=== PATIENT | female | born 1945 | race Caucasian/White ===

== ENCOUNTER 2020-03-01 13:59 | Emergency (ER) | payer MEDICARE ==
[~2020-03-01] VITALS: Ht 147.3 cm; Wt 63.0 kg
[~2020-03-01 13:59] MED LIST: ACET325T26 PO; ASPI-496 PO; DULO30CA2 PO; OXYC5TAB3 PO
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
[2020-03-01] MEDS ORDERED: ACETAMINOPHEN 500 MG TABLET PO ONE (14:30)
[2020-03-01] MEDS ORDERED: METHOCARBAMOL 750 MG TABLET PO ONE (14:30)
[2020-03-01] MEDS ORDERED: METHOCARBAMOL 750 MG TABLET ONE (14:32)
[2020-03-01] MEDS ORDERED: ACETAMINOPHEN 500 MG TABLET ONE (14:33)
--- NOTE | 2020-03-01 14:55 | NUR ---
Pt returned from [facility]. Came into Pt's room to give Tylenol and Robaxin. Pt refused tylenol because she states it gives her "cramps". Pt took Robaxin.
[2020-03-01] MEDS ORDERED: OXYcodone IR 5MG TABLET ONE (16:22)
--- NOTE | 2020-03-01 16:51 | NUR ---
DISCHARGE INSTRUCTIONS GIVEN TO PATIENT. INITIALLY PATIENT REFUSING TO LEAVE. DR. DUVALL INFORMED, ORDER TO GIVE OXYCODONE 5 AND SEND HER OUT. RN INFORMED PATIENT THAT ALL TEST WE NEGATIVE, AND THERE IS NO REASON TO KEEP HER IN THE HOSPITAL OVERNIGHT. PT REFUSED THE PAIN MEDICATION, AND THREW IT ON THE FLOOR. RN WILL WASTE MEDICATION AFTER PILL IS FOUND. PT AMBULATES OUT OF ED WITH STRONG STEADY GAIT.
[2020-03-01] MEDS ORDERED: OXYcodone IR 5MG TABLET PO ONE (17:00)
== END 2020-03-01 16:51 | disposition home or self-care (01) ==
LOC: ED 14:41
DX: M25.552 Pain in left hip (principal); I10 Essential (primary) hypertension
CPT/HCPCS: 99283

== ENCOUNTER 2020-04-14 21:50 | Emergency (ER) | payer MEDICARE, MEDICAID ==
[~2020-04-14] VITALS: Ht 147.3 cm; Wt 60.0 kg
[~2020-04-14 21:50] MED LIST changes: +ACET500C3 PO; +ASCO500T9 PO; +CEFD300C37 PO; +IBUP-1222 PO; +POLY17PO5 PO
[2020-04-14 22:28] LABS: MEAN CORPUSCULAR HEMOGLOBIN 22.8 pg (27.0-34.8); MEAN CORPUSCULAR HGB CONC 31.1 g/dL (32.4-35.8); MEAN CORPUSCULAR VOLUME 73.1 fL (80-100); MEAN PLATELET VOLUME 7.6 fL (7.4-10.4); PLATELET COUNT 673 x10^3/uL (130-400); RED BLOOD COUNT 3.26 x10^6/uL (3.82-5.3); RED CELL DISTRIBUTION WIDTH 16.3 % (9.6-15.2)
[2020-04-14 22:35] LABS: ALANINE AMINOTRANSFERASE 16 U/L (12-78); ANION GAP 5 mmol/L (5-15); CALCIUM 8.3 mg/dL (8.5-10.1); CHLORIDE 107 mmol/L (98-107); CREATININE 0.74 mg/dL (0.55-1.02)
[2020-04-14 22:39] LABS: ALKALINE PHOSPHATASE 158 U/L (45-117); BILIRUBIN,TOTAL 0.2 mg/dL (0.2-1.0); TOTAL PROTEIN 7.4 g/dL (6.4-8.2); TROPONIN I < 0.015 ng/mL (0.000-0.045)
[2020-04-14 23:05] LABS: MD YES
[2020-04-14 23:08] LABS: BASOS#(MANUAL) 0.11 x10^3/uL (0-0.1); BASOS% (MANUAL) 1 % (0-1); LYMPH#(MANUAL) 2.15 x10^3/uL (1-3.4); LYMPHS% (MANUAL) 19 % (22-44); MONOS#(MANUAL) 1.02 x10^3/uL (0.3-2.7); MONOS% (MANUAL) 9 % (2-9); SEG#(MANUAL) 8.02 x10^3/uL (1.8-6.8); SEGS% (MANUAL) 71 % (42-75)
[2020-04-14 23:09] LABS: ANISOCYTOSIS 1+; HYPOCHROMIA 1+; POLYCHROMASIA 1+
[2020-04-14 23:10] LABS: <PLATELET ESTIMATE> INCREASED; OVALOCYTES 1+
[2020-04-14 23:11] LABS: <PLT MORPHOLOGY> NORMAL PLT MORPH
[2020-04-15] MEDS ORDERED: ONDANSETRON 2MG/ML, 2ML IVPush ONE
[2020-04-15] MEDS ORDERED: MORPHINE SULFATE 4 MG/ML, 1ML IVPush PRN
[2020-04-15] MEDS ORDERED: MORPHINE SULFATE 4 MG/ML, 1ML ONE (00:25)
[2020-04-15] MEDS ORDERED: ONDANSETRON 2MG/ML, 2ML ONE (00:26)
--- NOTE | 2020-04-15 01:00 | NUR ---
Report received from KE Zamora. This RN to assume care. Awaiting CTA results.
[2020-04-15 02:58] VITALS: BP 127/72
[2020-04-15 03:08] LABS: AMPHETAMINE SCREEN, URINE Negative (Negative); BARBITURATE SCREEN, URINE Negative (Negative); BENZODIAZEPINE SCREEN, URINE Negative (Negative); CANNABINOID SCREEN, URINE Negative (Negative); COCAINE SCREEN, URINE Negative (Negative); METHADONE SCREEN, URINE Negative (Negative); OPIATE SCREEN, URINE Negative (Negative)
[2020-04-15 03:13] LABS: MICROSCOPIC INDICATED
== END 2020-04-15 03:00 | disposition home or self-care (01) ==
LOC: ED 23:15 → UNDOADMIN 04-15 01:37 → EDIP 04-15 01:37 → ED 04-15 03:00
DX: R07.89 Other chest pain (principal); R05 Cough; D50.9 Iron deficiency anemia, unspecified; R50.9 Fever, unspecified; R06.02 Shortness of breath; I10 Essential (primary) hypertension; Z87.891 Personal history of nicotine dependence
CPT/HCPCS: 36415; 71045; 71275; 80053; 80307; 81001; 83880; 84484; 85025; 87086; 93005; 96374; 96375; 99285; J2270; J2405

== ENCOUNTER 2020-04-16 17:51 | Emergency (ER) | payer MEDICARE, MEDICAID ==
[~2020-04-16] VITALS: Ht 147.3 cm; Wt 62.0 kg
--- NOTE | 2020-04-16 17:53 | NUR ---
PATIENT ARRIVES WITH RAFASA FROM HOME WITH COMPLAINTS OF LEFT BACK PAIN THAT BEGAN LAST NIGHT. LEFT LEG PAIN WELL. AND A COUGH AND CONGESTION AND COLD/FLU LIKE SYMPTOMS FOR SEVERAL DAYS.
--- NOTE | 2020-04-16 18:12 | NUR ---
patient got up with walker to go to the bathroom, she is good on feet with walker. she states history of bipolar and depression but takes no medications.
--- NOTE | 2020-04-16 18:39 | NUR ---
left for xray
[2020-04-16 18:44] VITALS: BP 127/68
[2020-04-16 18:53] LABS: MEAN CORPUSCULAR HEMOGLOBIN 22.9 pg (27.0-34.8); MEAN CORPUSCULAR HGB CONC 31.2 g/dL (32.4-35.8); MEAN CORPUSCULAR VOLUME 73.3 fL (80-100); MEAN PLATELET VOLUME 7.9 fL (7.4-10.4); PLATELET COUNT 657 x10^3/uL (130-400); RED BLOOD COUNT 3.19 x10^6/uL (3.82-5.3); RED CELL DISTRIBUTION WIDTH 16.9 % (9.6-15.2)
[2020-04-16 18:54] LABS: MICROSCOPIC INDICATED
[2020-04-16 19:06] LABS: ANION GAP 7 mmol/L (5-15); CALCIUM 8.8 mg/dL (8.5-10.1); CHLORIDE 108 mmol/L (98-107); CREATININE 0.71 mg/dL (0.55-1.02)
[2020-04-16 19:24] LABS: MD YES
[2020-04-16 19:28] LABS: BANDS%(MANUAL) 1 % (0-7); EOS% (MANUAL) 1 % (1-7); LYMPH#(MANUAL) 2.57 x10^3/uL (1-3.4); LYMPHS% (MANUAL) 26 % (22-44); MONOS% (MANUAL) 5 % (2-9); SEG#(MANUAL) 6.63 x10^3/uL (1.8-6.8); SEGS% (MANUAL) 67 % (42-75)
[2020-04-16 19:29] LABS: ANISOCYTOSIS 2+
[2020-04-16 19:30] LABS: HYPOCHROMIA 1+; MICROCYTOSIS 2+
[2020-04-16 19:31] LABS: OVALOCYTES 1+; POLYCHROMASIA 1+; TEAR DROPS 1+
[2020-04-16 19:32] LABS: <PLATELET ESTIMATE> INCREASED; <PLT MORPHOLOGY> NORMAL PLT MORPH
--- NOTE | 2020-04-16 20:06 | NUR ---
patient has gotten up with walker and assistance getting in and out of bed to bathroom x 8 during her stay, states has prolapsed bladder hence urgency. she gets up and walks to nurses station wanting help, and walked into another patients room where i was to ask for help. Patient hits call light aover 15 times during her stay, asking for help getting up and down, help with tv, blankets, help with getting positioned. helping her as much as i'm able. patient has multiple complaints, trying to help patient get around.
--- NOTE | 2020-04-16 20:27 | NUR ---
got patient cab voucher home. discharge reviewed.
[2020-04-16] MEDS ORDERED: NALOXONE 1 MG/ML, 2ML ONE (20:59)
== END 2020-04-16 20:28 ==
LOC: ED 19:22
DX: M54.6 Pain in thoracic spine (principal); M54.5 Low back pain; B34.9 Viral infection, unspecified; R06.02 Shortness of breath; I10 Essential (primary) hypertension
CPT/HCPCS: 36415; 71045; 72110; 80048; 81001; 82040; 85025; 87086; 99284

== ENCOUNTER 2020-04-30 03:34 | Emergency (ER) | payer MEDICARE, MEDICAID ==
[~2020-04-30] VITALS: Ht 147.3 cm; Wt 62.0 kg
--- NOTE | 2020-04-30 04:10 | NUR ---
REFORTS GLF LAST NIGHT, PT REPORTS SHE FELL ON RIGHT SIDE HOWEVER PAIN IS ON LEFT HIP AND KNEE.
--- NOTE | 2020-04-30 04:57 | NUR ---
ASSISTED PT TO [facility].
[2020-04-30] MEDS ORDERED: KETOROLAC 30 MG/1 ML ONE (05:46)
[2020-04-30 05:50] VITALS: BP 151/73
--- NOTE | 2020-04-30 05:51 | NUR ---
MEDICATED PER MAR.
[2020-04-30] MEDS ORDERED: KETOROLAC 30 MG/1 ML IM ONE (06:00)
== END 2020-04-30 06:15 ==
LOC: ED 04:21
DX: S70.02XA Contusion of left hip, initial encounter (principal); G89.29 Other chronic pain; W18.30XA Fall on same level, unspecified, initial encounter; I10 Essential (primary) hypertension; Y93.89 Activity, other specified; Y92.009 Unspecified place in unspecified non-institutional (private) residence as the place of occurrence of the external cause; Y99.8 Other external cause status
CPT/HCPCS: 73523; 96372; 99283; J1885

== ENCOUNTER 2020-05-15 13:27 | Emergency (ER) | payer MEDICARE, MEDICAID ==
[~2020-05-15] VITALS: Ht 147.3 cm; Wt 60.0 kg
--- NOTE | 2020-05-15 14:04 | NUR ---
FIRST CONTACT WITH PT. PT STATED "I THINK I HAVE UTI. I CAN'T STOP PEEING AND I BURN REAL BAD. IT'S BEEN FOR TWO DAYS." NO C/O FEVER, COUGH, PT'S AOX4. RESPS EVEN AND UNLABORED. BP/SPO2 MONITORS IN PLACE. CALL LIGHT WITHIN REACH.
--- NOTE | 2020-05-15 14:05 | NUR ---
PT AMB TO BR WITH STEADY GAIT. HAT AND URINE CUP GIVEN.
--- NOTE | 2020-05-15 14:12 | NUR ---
PT PROVIDED URINE SAMPLE AT THIS TIME. URINE COLLECTED AND UA SENT.
--- NOTE | 2020-05-15 14:35 | NUR ---
LAB AT BEDSIDE AT THIS TIME.
--- NOTE | 2020-05-15 14:46 | NUR ---
pt requesting pain med for wilson. edmd notified.
[2020-05-15 14:47] LABS: MICROSCOPIC AUTO
[2020-05-15 15:02] LABS: ALBUMIN 3.2 g/dL (3.4-5.0); ANION GAP 6 mmol/L (5-15); CALCIUM 8.9 mg/dL (8.5-10.1); CHLORIDE 108 mmol/L (98-107)
[2020-05-15 15:04] LABS: CREATININE 0.68 mg/dL (0.55-1.02)
--- NOTE | 2020-05-15 15:08 | NUR ---
REPORT GIVEN TO ANNE DEMPSEY.
--- NOTE | 2020-05-15 15:13 | NUR ---
SBAR RPT REC'D FROM KE RICHARDS AND ASSUMED PT CARE. PT OOB INDEPENDENTLY, C/O "I FEEL SO WEAK" PT TO BATHROOM VIA WHEELCHAIR. PT INSTRUCTED TO USE EMERGENCY PULL CORD WHEN SHE IS FINISHED.
[2020-05-15 15:16] LABS: MEAN CORPUSCULAR HEMOGLOBIN 23.2 pg (27.0-34.8); MEAN CORPUSCULAR HGB CONC 30.7 g/dL (32.4-35.8); MEAN CORPUSCULAR VOLUME 75.6 fL (80-100); PLATELET COUNT 481 x10^3/uL (130-400); RED BLOOD COUNT 4.18 x10^6/uL (3.82-5.3); RED CELL DISTRIBUTION WIDTH 22.8 % (9.6-15.2)
--- NOTE | 2020-05-15 15:17 | NUR ---
PT RTD TO ROOM VIA WHEELCHAIR. REQUESTS TO LAY FLAT IN BED. PILLOW PROVIDED, CALL LIGHT W/I REACH
[2020-05-15 15:25] VITALS: BP 136/72
[2020-05-15] MEDS ORDERED: CEFDINIR 300 MG CAPSULE PO ONE (15:30)
--- NOTE | 2020-05-15 15:35 | NUR ---
RX CALLED TO THE PHARMACY AT [facility], ON , SPOKE WITH HYUN.
--- NOTE | 2020-05-15 15:38 | NUR ---
PT AMBULATORY USING HER CANE TO D/C.
--- NOTE | 2020-05-15 15:39 | NUR ---
Patient/Caregiver given discharge instructions and they have confirmed that they understand the instructions. Patient ambulatory with steady gait.
[2020-05-15 15:50] LABS: BASOPHILS # (AUTO) 0.07 x10^3/uL (0-0.1); BASOPHILS % (AUTO) 1 % (0-1); EOSINOPHILS # (AUTO) 0.07 x10^3/uL (0-0.4); EOSINOPHILS % (AUTO) 1 % (1-7); LYMPHOCYTES # (AUTO) 1.27 x10^3/uL (1-3.4); LYMPHOCYTES % (AUTO) 16 % (22-44); MONOCYTES # (AUTO) 0.59 x10^3/uL (0.2-0.8); MONOCYTES % (AUTO) 8 % (2-9); NEUTROPHILS # (AUTO) 5.86 x10^3/uL (1.8-6.8); NEUTROPHILS % (AUTO) 75 % (42-75)
[2020-05-15 15:51] LABS: MD SCAN
== END 2020-05-15 15:40 | disposition home or self-care (01) ==
LOC: ED 15:34
DX: N30.00 Acute cystitis without hematuria (principal); D50.0 Iron deficiency anemia secondary to blood loss (chronic); I10 Essential (primary) hypertension
CPT/HCPCS: 36415; 80048; 81001; 82040; 83605; 84145; 85025; 87040; 87086; 99283

== ENCOUNTER 2020-05-26 11:14 | Emergency (ER) | payer MEDICARE, MEDICAID ==
[~2020-05-26] VITALS: Ht 149.9 cm; Wt 62.0 kg
[2020-05-26] MEDS ORDERED: ACETAMINOPHEN 325 MG TABLET PO ONE (11:30)
[2020-05-26 11:50] VITALS: BP 146/63
[2020-05-26] MEDS ORDERED: ACETAMINOPHEN 325 MG TABLET ONE (11:56)
[2020-05-26] MEDS ORDERED: CYMBALTA (12:09)
[2020-05-26] MEDS ORDERED: PAXIL (12:09)
--- NOTE | 2020-05-26 12:14 | NUR ---
PT REFUSED ORDERED TYLENOL. STATED SHE IS IN TOO MUCH PAIN FOR TYLENOL AND NEEDS A STRONG SHOT. ERP IN SPEAKING WITH PT AT THIS TIME. WILL AWAIT ORDERS.
[2020-05-26] MEDS ORDERED: OXYcodone IR 5MG TABLET ONE (12:22)
--- NOTE | 2020-05-26 12:26 | NUR ---
PT REFUSED ORDERED OXYCODONE. PT STATED THIS MED EFFECTS HER WORSE THEN THE TYLENOL. PT STATED SHE IS UNABLE TO TAKE OXYCODONE. ERP AWARE.
[2020-05-26] MEDS ORDERED: OXYcodone/APAP 5/325MG TABLET PO ONE (12:30)
[2020-05-26] MEDS ORDERED: OXYcodone 5 MG/5 ML ORAL.SOL UDC PO PRN (12:30)
[2020-05-26] MEDS ORDERED: CYCLOBENZAPRINE 10 MG TABLET PO ONE (13:00)
[2020-05-26] MEDS ORDERED: METHOCARBAMOL 500 MG TABLET PO ONE (13:00)
--- NOTE | 2020-05-26 13:03 | NUR ---
PT STATED SHE IS UNABLE TO TAKE THE FLEXERIL BECAUSE IT DOES NOT WORK. ERP AWARE. NEW ORDERS BEING PLACED.
[2020-05-26] MEDS ORDERED: METHOCARBAMOL 500 MG TABLET ONE (13:05)
== END 2020-05-26 13:19 | disposition home or self-care (01) ==
LOC: ED 12:14
DX: S20.212A Contusion of left front wall of thorax, initial encounter (principal); R51 Headache; M25.532 Pain in left wrist; I10 Essential (primary) hypertension; W50.1XXA Accidental kick by another person, initial encounter; Y93.89 Activity, other specified; Y92.89 Other specified places as the place of occurrence of the external cause; Y99.8 Other external cause status
CPT/HCPCS: 99283

== ENCOUNTER 2020-05-29 05:15 | Emergency (ER) | payer MEDICARE, MEDICAID ==
[~2020-05-29] VITALS: Ht 149.9 cm; Wt 61.3 kg
[2020-05-29 05:15] VITALS: BP 169/62
[~2020-05-29 05:15] MED LIST changes: +CYMBALTA; +PAXIL
--- NOTE | 2020-05-29 05:23 | NUR ---
Pt ambulatory w/ walker (brought by [facility]) to bathroom w/o assistance, gait steady.
[2020-05-29] MEDS ORDERED: DIAZEPAM 5 MG TABLET ONE ×2 (05:44→05:46)
--- NOTE | 2020-05-29 05:48 | NUR ---
Pt disconnected self from pulse ox, obtained walked and walked to bathroom w/o assistance, no gait disturbance noted.
[2020-05-29] MEDS ORDERED: DIAZEPAM 5 MG TABLET PO ONE (06:00)
[2020-05-29 06:03] LABS: MEAN CORPUSCULAR HEMOGLOBIN 23.2 pg (27.0-34.8); MEAN PLATELET VOLUME 8.7 fL (7.4-10.4); PLATELET COUNT 430 x10^3/uL (130-400); RED BLOOD COUNT 4.36 x10^6/uL (3.82-5.3)
[2020-05-29 06:05] LABS: ALBUMIN 3.4 g/dL (3.4-5.0); ANION GAP 6 mmol/L (5-15); CALCIUM 9.3 mg/dL (8.5-10.1); CHLORIDE 109 mmol/L (98-107)
[2020-05-29 06:09] LABS: ALANINE AMINOTRANSFERASE 21 U/L (12-78); ALKALINE PHOSPHATASE 162 U/L (45-117); BILIRUBIN,TOTAL 0.3 mg/dL (0.2-1.0); CREATINE KINASE, TOTAL 90 U/L (26-192); CREATININE 0.52 mg/dL (0.55-1.02); TOTAL PROTEIN 7.7 g/dL (6.4-8.2)
[2020-05-29 06:27] LABS: MICROSCOPIC AUTO
[2020-05-29 06:30] LABS: MD YES
[2020-05-29 06:32] LABS: ANISOCYTOSIS 2+; BANDS%(MANUAL) 1 % (0-7); EOS% (MANUAL) 2 % (1-7); HYPOCHROMIA 1+; LYMPH#(MANUAL) 1.53 x10^3/uL (1-3.4); LYMPHS% (MANUAL) 15 % (22-44); MICROCYTOSIS 2+; MONOS#(MANUAL) 0.71 x10^3/uL (0.3-2.7); MONOS% (MANUAL) 7 % (2-9); OVALOCYTES 1+; POLYCHROMASIA 1+; SEG#(MANUAL) 7.65 x10^3/uL (1.8-6.8); SEGS% (MANUAL) 75 % (42-75)
[2020-05-29 06:33] LABS: <PLATELET ESTIMATE> INCREASED; GIANT PLATELETS 1+; LARGE PLATELETS 1+
[2020-05-29] MEDS ORDERED: NAPROXEN 500 MG TABLET ONE (07:07)
--- NOTE | 2020-05-29 07:09 | NUR ---
PT AMBULATORY WITH STEADY GAIT USING WALKER TO THE BATHROOM. NADN. PT NOT C/O PAIN. PT NOW STANDING BEDSIDE AND WALKING TO HER BELONGINGS WITHOUT USING HER WALKER. NO OTHER NEEDS REQUESTED AT THIS TIME.
--- NOTE | 2020-05-29 07:16 | NUR ---
PT GIVEN CRACKERS
--- NOTE | 2020-05-29 07:28 | NUR ---
PT EDUCATED REGARDING ALL D/C INFORMATION. PT REFUSING PRESCRIPTION. PT STATES "THIS ISN'T WHAT I WANT. I DON'T WANT THIS." PT PULLS PRESCRIPTION OFF OF D/C PAPERWORK. PT WAS REEDUCATED REGARDING THE TYPE OF MEDICATION NAPROXYSEN IS AND HOW IT WILL HELP. PT STILL REFUSES THE RX. PT TAKEN TO D/C AND SHOWN HOW TO CALL [facility] FOR TRANSPORTATION. PT LEFT WITH ALL PERSONAL BELONGINGS.
[2020-05-29] MEDS ORDERED: NAPROXEN 250 MG TABLET PO ONE (07:30)
--- NOTE | 2020-05-29 07:30 | NUR ---
PT AMBULATORY WITH STEADY GAIT USING PERSONAL WALKER. NO LIMPING AT THIS TIME.
== END 2020-05-29 07:58 | disposition home or self-care (01) ==
LOC: ED 06:18
DX: M79.10 Myalgia, unspecified site (principal)
CPT/HCPCS: 36415; 80053; 81001; 82550; 85025; 87086; 99283

== ENCOUNTER 2020-06-07 22:50 | Emergency (ER) | payer MEDICARE, MEDICAID ==
[~2020-06-07] VITALS: Ht 149.9 cm; Wt 61.3 kg
[2020-06-07 22:58] VITALS: BP 127/88
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
[2020-06-07] MEDS ORDERED: HYDROcodone/APAP 5/325 TABLET ONE (23:15)
[2020-06-07] MEDS ORDERED: HYDROcodone/APAP 5/325 TABLET PO ONE (23:30)
--- NOTE | 2020-06-07 23:34 | NUR ---
okayed use of norco. Per pt she is not allergic to NORCO
--- NOTE | 2020-06-07 23:53 | NUR ---
Pt ambulated to restroom with minimal help
--- NOTE | 2020-06-08 00:37 | NUR ---
Patient/Caregiver given discharge instructions and they have confirmed that they understand the instructions. Patient ambulatory with steady gait.
== END 2020-06-08 00:39 | disposition home or self-care (01) ==
LOC: ED 23:57
DX: G89.11 Acute pain due to trauma (principal); M54.5 Low back pain; R07.9 Chest pain, unspecified; M25.512 Pain in left shoulder; I10 Essential (primary) hypertension; Z87.891 Personal history of nicotine dependence; W01.0XXA Fall on same level from slipping, tripping and stumbling without subsequent striking against object, initial encounter; Y93.89 Activity, other specified; Y92.89 Other specified places as the place of occurrence of the external cause; Y99.8 Other external cause status
CPT/HCPCS: 71045; 72110; 99284

== ENCOUNTER 2020-06-27 14:55 | Emergency (ER) | payer MEDICARE, MEDICAID ==
[~2020-06-27] VITALS: Ht 121.9 cm; Wt 62.0 kg
--- NOTE | 2020-06-27 15:17 | NUR ---
WAS WALKING DOWN[place]ILL WITH WALKER AND SLIPPED ON THE GRASS AND FELL. PT STATES "I DID NOT HIT MY HEAD. BUT I WAS KNOCKED OUT" DENIES TAKING BLOOD THINNERS. PT CALLED 911 AND WAS PLACED IN C COLLAR BY EMS. BROUGHT TO ED BY FRIEND. Pt has no neuro deficits a this time but does have pain. Pt has decent ambulation from wheelchair to bed. Pt asking to stay seated and watch tv.
[2020-06-27] MEDS ORDERED: KETOROLAC 30 MG/1 ML ONE (15:24)
[2020-06-27] MEDS ORDERED: KETOROLAC 30 MG/1 ML IM ONE (15:30)
--- NOTE | 2020-06-27 15:30 | NUR ---
Pt refused Toradol shot intially wanting something stronger. Informed PA of this. Pt to CT
[2020-06-27 15:54] VITALS: BP 142/60
--- NOTE | 2020-06-27 16:25 | NUR ---
Patient/Caregiver given discharge instructions and they have confirmed that they understand the instructions. Patient ambulatory with steady gait.
--- NOTE | 2020-06-27 16:50 | NUR ---
Pt is leaving upset because she did not recieve stronger pain control. Pt reports she is use to getting morphine and this is ridiculous that she cannot have some. Pt explained why flexeril will help relax the muscles and get rid of the pain. Pt was given toradol as well for pain control.Pt explained why anti-inflamatorys and muscle relaxers work well for the pain she has described. Pt requesting "can I at least have some Somas". Pt informed that pain medicine is not good for the current diagnosis. Pt angry and said thanks for noting you guys never give me anyting. Pt ambulated to discharge desk without dificulty. Pt did take the perscription and highly encouraged to please take them as they will help his pain. Patient/Caregiver given discharge instructions and they have confirmed that they understand the instructions. Patient ambulatory with steady gait.
== END 2020-06-27 16:57 | disposition home or self-care (01) ==
LOC: ED 16:20
DX: S16.1XXA Strain of muscle, fascia and tendon at neck level, initial encounter (principal); I10 Essential (primary) hypertension; Z88.6 Allergy status to analgesic agent; W01.0XXA Fall on same level from slipping, tripping and stumbling without subsequent striking against object, initial encounter; Y93.89 Activity, other specified; Y92.89 Other specified places as the place of occurrence of the external cause; Y99.8 Other external cause status
CPT/HCPCS: 70450; 72125; 96372; 99285; J1885

== ENCOUNTER 2020-07-22 12:10 | Emergency (ER) | payer MEDICARE, MEDICAID ==
[~2020-07-22] VITALS: Ht 147.3 cm; Wt 62.0 kg
[2020-07-22] MEDS ORDERED: RESTORIL (12:39)
[2020-07-22] MEDS ORDERED: HYDROcodone/APAP 5/325 TABLET ONE (12:49)
[2020-07-22] MEDS ORDERED: HYDROcodone/APAP 5/325 TABLET PO ONE (13:00)
--- NOTE | 2020-07-22 13:08 | NUR ---
PT SITTING ON GURNEY, ABLE TO DOZE OFF. PT AMBULATORY TO RESTROOM. PT COMPLAINS OF PAIN, MEDICATED PER EMAR. CALL LIGHT WITHIN REACH, FALL PRECAUTIONS IN PLACE. NO ADDITIONAL NEEDS AT THIS TIME.
--- NOTE | 2020-07-22 13:40 | NUR ---
PT TO CT.
--- NOTE | 2020-07-22 13:58 | NUR ---
PT BACK TO ROOM FROM CT. PT SUPINE ON BED WATCHING TV AND ABLE TO DOZE OFF. PT STATES PAIN IS A 10/10 THEN DOZES OFF. NO NEED TO USE BATHROOM, CALL LIGHT WITHIN REACH AND PILLOW PROVIDED. NO ADDITIONAL NEEDS AT THIS TIME.
[2020-07-22] MEDS ORDERED: KETOROLAC 30 MG/1 ML ONE (14:17)
[2020-07-22 14:27] VITALS: BP 142/63
--- NOTE | 2020-07-22 14:27 | NUR ---
Patient given discharge instructions and they have confirmed that they understand the instructions. Patient ambulatory with steady gait AT D/C DESK.
[2020-07-22] MEDS ORDERED: KETOROLAC 30 MG/1 ML IM ONE (14:30)
== END 2020-07-22 14:29 | disposition home or self-care (01) ==
LOC: ED 12:44
DX: S22.31XA Fracture of one rib, right side, initial encounter for closed fracture (principal); S30.1XXA Contusion of abdominal wall, initial encounter; I10 Essential (primary) hypertension; W01.0XXA Fall on same level from slipping, tripping and stumbling without subsequent striking against object, initial encounter; Y92.009 Unspecified place in unspecified non-institutional (private) residence as the place of occurrence of the external cause; Y93.89 Activity, other specified; Y99.8 Other external cause status
CPT/HCPCS: 71250; 96372; 99284; J1885

== ENCOUNTER 2020-08-12 00:09 | Emergency (ER) | payer MEDICARE, MEDICAID ==
[~2020-08-12] VITALS: Ht 177.8 cm; Wt 61.4 kg
[~2020-08-12 00:09] MED LIST changes: +RESTORIL
--- NOTE | 2020-08-12 01:18 | NUR ---
REPORT GIVEN TO KE JASMINE.
--- NOTE | 2020-08-12 01:52 | NUR ---
PT UP TO BSC AT THIS TIME NO ASSIST REQUIRED
[2020-08-12 01:53] VITALS: BP 121/67
--- NOTE | 2020-08-12 02:28 | NUR ---
TASK RN: PT OFFERED TORADOL FOR PAIN, REFUSED. STATES "I JUST WANT SOME MORPHINE, JUST A LIGHT SHOT OF MORPHINE BEFORE I GO". PT EDUCATED ON PAIN MANAGEMENT OPTIONS AND CONTINUES TO REFUSE TORADOL AT THIS TIME.
[2020-08-12] MEDS ORDERED: KETOROLAC 30 MG/1 ML ONE (02:40)
--- NOTE | 2020-08-12 02:52 | NUR ---
Patient/Caregiver given discharge instructions and they have confirmed that they understand the instructions. Patient ambulatory with steady gait.
[2020-08-12] MEDS ORDERED: KETOROLAC 30 MG/1 ML IVPush ONE (03:00)
== END 2020-08-12 02:53 | disposition home or self-care (01) ==
LOC: ED 00:39
DX: G89.11 Acute pain due to trauma (principal); M25.551 Pain in right hip; I10 Essential (primary) hypertension; Z87.891 Personal history of nicotine dependence; W01.0XXA Fall on same level from slipping, tripping and stumbling without subsequent striking against object, initial encounter; Y93.89 Activity, other specified; Y92.89 Other specified places as the place of occurrence of the external cause; Y99.8 Other external cause status
CPT/HCPCS: 73502; 96374; 99283; J1885

== ENCOUNTER 2020-08-27 17:18 | Emergency (ER) | payer MEDICARE, MEDICAID ==
[~2020-08-27] VITALS: Ht 147.3 cm; Wt 61.6 kg
--- NOTE | 2020-08-27 18:21 | NUR ---
PT C/O BEING COLD FOR DAYS. PT ALSO STATES SHE HAS A HEADACHE FROM BEING HUNGRY. PT DENIES ANY OTHER PAIN. TISSUE PROTRUSION NOTED BELOW THE LEVEL OF THE URETHRA IN THE VAGINA DURING IN AND OUT CATH FOR URINE SPECIMEN. PUREWICK PLACED FOR PT WHO STATES SHE HAS THE URGE TO URINATE.
[2020-08-27 18:23] VITALS: BP 144/76
[2020-08-27 18:33] LABS: MICROSCOPIC INDICATED
[2020-08-27] MEDS ORDERED: CEFTRIAXONE 1,000 MG IM ONE (19:00)
--- NOTE | 2020-08-27 19:09 | NUR ---
PT REFUSING ANTIBIOTICS AT THIS TIME. PT STATES SHE IS INTO HOMEOPATHIC TREATMENTS. PT EDUCATED ON NEED FOR ANTIBIOTICS, BUT PT STILL REFUSING
== END 2020-08-27 20:07 ==
LOC: ED 18:46
DX: N30.00 Acute cystitis without hematuria (principal); Z72.9 Problem related to lifestyle, unspecified; I10 Essential (primary) hypertension; Z87.891 Personal history of nicotine dependence
CPT/HCPCS: 71045; 81001; 87086; 99284

== ENCOUNTER 2020-08-28 18:36 | Emergency (ER) | payer MEDICARE, MEDICAID ==
[~2020-08-28] VITALS: Ht 165.1 cm; Wt 60.0 kg
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
--- NOTE | 2020-08-28 19:00 | NUR ---
REPORT RECIEVED FROM KE CORTEZ. PT COVID SWABBED, AND SENT TO LAB
--- NOTE | 2020-08-28 19:00 | NUR ---
RAPID COVID TEST OBTAINED AND WALKED TO LAB. REPORT TO KE HOLT.
--- NOTE | 2020-08-28 19:15 | NUR ---
THIS RN IN ROOM PRECEPTING YOANA DEMPSEY
--- NOTE | 2020-08-28 19:19 | NUR ---
DISCONECTED PT FROM MONITORS, PT AMBULATED TO BATHROOM
--- NOTE | 2020-08-28 19:59 | NUR ---
kit housing paper filled out and signed by pt. given to sack department supervisor to email over.
--- NOTE | 2020-08-28 20:46 | NUR ---
spoke with [facility] faxed summary report and labs awaiting response
--- NOTE | 2020-08-28 21:41 | NUR ---
PT ACCEPTED AT [facility], ON THE CONDITION THAT PT CAN GO TO RESTROOM ON HER OWN, THEY ARE UNABLE TO PROVIDE ABX OR DEPENDS DIAPERS AND WOULD LIKE TO BE PROVIDED WITH 4 OF THEM TO GET THROUGH DAY. THIS RN WITNESS PT WALK TO BATHROOM AND AROUND ROOM WITHOUT ASSISTANCE, PT REFUSED ABX YESTERDAY BECAUSE OF HER HOMEOPATHIC BELIEFS, AND WE WILL PROVIDED DIAPERS FOR HER TO TAKE. ROSANNA FROM [facility] STATES SHE WILL CALL [facility] WITH PICKUP TIME.
--- NOTE | 2020-08-28 21:55 | NUR ---
PIA RN: [facility] TO TRANSPORT PT TO [facility]. [facility] IS VERY BUSY AT THE MOMENT AND [facility] SAYS "A COUPLE HOURS AT LEAST" FOR ETA
[2020-08-28 22:00] VITALS: BP 132/64
== END 2020-08-28 22:40 | disposition home or self-care (01) ==
LOC: ED 19:39
DX: U07.1 COVID-19 (principal); B34.9 Viral infection, unspecified; J02.9 Acute pharyngitis, unspecified; Z72.9 Problem related to lifestyle, unspecified
CPT/HCPCS: 87635; 99283

== ENCOUNTER 2020-09-22 14:42 | Emergency (ER) | payer MEDICARE, MEDICAID ==
[~2020-09-22] VITALS: Ht 157.5 cm; Wt 61.1 kg
--- NOTE | 2020-09-22 16:39 | NUR ---
PATIENT ARRIVES TO THE ER WITH THREE DAYS PAINFUL URINATION. STATES NOW TODAY FEELIGN WEAK. HISTORY OF FREQUENT UTIS. GOT AND SENT URINE TO LAB
[2020-09-22 17:33] LABS: MICROSCOPIC INDICATED
--- NOTE | 2020-09-22 18:18 | NUR ---
PT RESTING QUIETLY AWAITING CT
[2020-09-22 18:34] LABS: BASOPHILS % (AUTO) 1 % (0-1); EOSINOPHILS % (AUTO) 1 % (1-7); LYMPHOCYTES % (AUTO) 15 % (22-44); MEAN CORPUSCULAR HEMOGLOBIN 27.5 pg (27.0-34.8); MEAN CORPUSCULAR HGB CONC 32.8 g/dL (32.4-35.8); MEAN PLATELET VOLUME 7.8 fL (7.4-10.4); MONOCYTES % (AUTO) 8 % (2-9); NEUTROPHILS % (AUTO) 76 % (42-75); PLATELET COUNT 422 x10^3/uL (130-400); RED BLOOD COUNT 4.03 x10^6/uL (3.82-5.3)
[2020-09-22 18:39] LABS: MD NO
[2020-09-22 18:46] LABS: ALANINE AMINOTRANSFERASE 20 U/L (12-78); ALBUMIN 3.1 g/dL (3.4-5.0); ANION GAP 4 mmol/L (5-15); CHLORIDE 108 mmol/L (98-107); CREATININE 0.62 mg/dL (0.55-1.02)
[2020-09-22 18:49] LABS: ALKALINE PHOSPHATASE 148 U/L (45-117); BILIRUBIN,TOTAL 0.5 mg/dL (0.2-1.0); TOTAL PROTEIN 7.2 g/dL (6.4-8.2)
--- NOTE | 2020-09-22 18:58 | NUR ---
report from KE nolasco
[2020-09-22] MEDS ORDERED: OMNIPAQUE 350 MG/ML, 100ML BOTTLE ONE (19:00)
[2020-09-22] MEDS ORDERED: SODIUM CHLORIDE 0.9% 1,000ML IVBOLUS ONE (20:00)
[2020-09-22 20:08] VITALS: BP 141/68
--- NOTE | 2020-09-22 20:19 | NUR ---
pt resting on [facility]. no requests at this time. waiting ct results. VSS.
[2020-09-22] MEDS ORDERED: metroNIDAZOLE 500 MG TABLET ONE (21:28)
[2020-09-22] MEDS ORDERED: AMOXICILLIN/CLAV 875-125MG TABLET ONE (21:28)
[2020-09-22] MEDS ORDERED: metroNIDAZOLE 500 MG TABLET PO ONE (21:30)
[2020-09-22] MEDS ORDERED: AMOXICILLIN/CLAV 875-125MG TABLET PO ONE (21:30)
--- NOTE | 2020-09-22 21:30 | NUR ---
PT OFFERED HOSPITAL ADMISSION. PT REFUSED AND PREFERS ANTIBIOTICS AT HOME. PT TO BE DISCHARGED.
== END 2020-09-22 21:40 | disposition home or self-care (01) ==
LOC: ED 20:56 → EDIP 21:35 → UNDOADMIN 21:35 → ED 21:40
DX: K57.32 Diverticulitis of large intestine without perforation or abscess without bleeding (principal); A41.9 Sepsis, unspecified organism; R10.2 Pelvic and perineal pain; I10 Essential (primary) hypertension
CPT/HCPCS: 36415; 74177; 80053; 81001; 85025; 87086; 99291; Q9967

== ENCOUNTER 2020-10-16 00:34 | Emergency (ER) | payer MEDICARE, MEDICAID ==
[~2020-10-16] VITALS: Ht 147.3 cm; Wt 50.0 kg
[2020-10-16 02:00] LABS: BASOPHILS % (AUTO) 1 % (0-1); EOSINOPHILS % (AUTO) 1 % (1-7); LYMPHOCYTES % (AUTO) 23 % (22-44); MEAN CORPUSCULAR HEMOGLOBIN 28.2 pg (27.0-34.8); MEAN CORPUSCULAR HGB CONC 32.8 g/dL (32.4-35.8); MEAN PLATELET VOLUME 8.2 fL (7.4-10.4); MONOCYTES % (AUTO) 10 % (2-9); NEUTROPHILS % (AUTO) 65 % (42-75); PLATELET COUNT 373 x10^3/uL (130-400); RED BLOOD COUNT 4.24 x10^6/uL (3.82-5.3); RED CELL DISTRIBUTION WIDTH 15.8 % (9.6-15.2)
[2020-10-16 02:02] LABS: ALANINE AMINOTRANSFERASE 23 U/L (12-78); ALBUMIN 3.3 g/dL (3.4-5.0); ANION GAP 3 mmol/L (5-15); CHLORIDE 106 mmol/L (98-107)
[2020-10-16 02:03] LABS: MICROSCOPIC NOT IND
[2020-10-16 02:05] LABS: ALKALINE PHOSPHATASE 154 U/L (45-117); BILIRUBIN,TOTAL 0.5 mg/dL (0.2-1.0); CREATININE 0.69 mg/dL (0.55-1.02); TOTAL PROTEIN 7.5 g/dL (6.4-8.2)
[2020-10-16 02:18] LABS: MD NO
[2020-10-16 03:09] VITALS: BP 147/83
== END 2020-10-16 03:11 | disposition home or self-care (01) ==
LOC: ED 01:05
DX: S00.06XA Insect bite (nonvenomous) of scalp, initial encounter (principal); I10 Essential (primary) hypertension; W57.XXXA Bitten or stung by nonvenomous insect and other nonvenomous arthropods, initial encounter; Y93.89 Activity, other specified; Y92.89 Other specified places as the place of occurrence of the external cause; Y99.8 Other external cause status
CPT/HCPCS: 36415; 80053; 81003; 85025; 99283

== ENCOUNTER 2020-11-18 18:32 | Emergency (ER) | payer MEDICAID, MEDICARE ==
[~2020-11-18] VITALS: Ht 147.3 cm; Wt 61.4 kg
[2020-11-18 18:35] VITALS: BP 171/100
[2020-11-18] MEDS ORDERED: LIDOCAINE-MPF 1%, 5ML ONE (18:50)
[2020-11-18] MEDS ORDERED: CEPHALEXIN 500 MG CAPSULE ONE (18:50)
[2020-11-18] MEDS ORDERED: SULFAMETH./TRIMETHOPRIM DS 800MG/160MG TABLET ONE (18:50)
[2020-11-18] MEDS ORDERED: CEPHALEXIN 500 MG CAPSULE PO ONE (19:00)
[2020-11-18] MEDS ORDERED: LIDOCAINE 1%, 10ML INFIL ONE (19:00)
[2020-11-18] MEDS ORDERED: SULFAMETH./TRIMETHOPRIM DS 800MG/160MG TABLET PO ONE (19:00)
== END 2020-11-18 19:51 | disposition home or self-care (01) ==
LOC: ED 18:40
DX: L03.032 Cellulitis of left toe (principal); R00.0 Tachycardia, unspecified; R50.9 Fever, unspecified; I10 Essential (primary) hypertension
CPT/HCPCS: 11730; 99284; J3490; 11740

== ENCOUNTER 2020-11-29 16:41 | Emergency (ER) | payer MEDICARE ==
[~2020-11-29] VITALS: Ht 152.4 cm; Wt 60.0 kg
[~2020-11-29 16:41] MED LIST changes: -OXYC5TAB3 PO; +OXYC5TAB98 PO
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
--- NOTE | 2020-11-29 17:36 | NUR ---
THROUGHPUT: ABDULLAHI FROM PT SENIOR [facility] REQUSTED TO SPEAK WITH JULIO, JANE AWARE.
--- NOTE | 2020-11-29 18:13 | NUR ---
PT IN BED. MD ASSESSED. NO DISTRESS
[2020-11-29 19:09] LABS: ALBUMIN 3.5 g/dL (3.4-5.0); ANION GAP 5 mmol/L (5-15); CALCIUM 9.4 mg/dL (8.5-10.1); CHLORIDE 110 mmol/L (98-107); CREATININE 0.71 mg/dL (0.55-1.02)
--- NOTE | 2020-11-29 20:07 | NUR ---
PT STRAIGHT CATH C BATTER MIXER, TOLERATED WELL. UA COLLECTED & WALKED TO LAB. PT DENIES ANY NEEDS AT THIS TIME.
[2020-11-29 20:26] LABS: MICROSCOPIC NOT IND
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
--- NOTE | 2020-11-29 21:01 | NUR ---
pt in bed. keeps coming into the salas, sling applied
[2020-11-29 21:37] VITALS: BP 126/72
--- NOTE | 2020-11-29 21:37 | NUR ---
pt in bed, no distress
--- NOTE | 2020-11-29 22:10 | NUR ---
LATE NOTE: [facility] REGARDING PT DETAILS IN ATTEMPT TO FIND PHYSICAL ADDRESS FOR PT. [facility] WAS ABLE TO FILTER THROUGH CALLS DURING THE 1600 HOUROF THAT DAY. [facility] WAS ABLE TO GIVE ADDRESS THAT PT WAS PICKED UP FROM. INFORMATION WAS PASSED ON TO SURENDRA DEMPSEY.
--- NOTE | 2020-11-29 23:24 | NUR ---
[facility] OFFICE CALLED TO ENSURE THAT NURSING HOME IS OPEN AND PATIENT CAN GET INSIDE THE RESIDENCE. DEPUTY MILLER CALLED THIS RN AND REPORTED THAT THE RESIDENCE IS UNLOCKED AND THEY ARE AWAITING THE ARRIVAL OF THE PATIENT. ALSO STATES HE WILL STAY IN THE AREA TO ENSURE THE TAXI BRINGS THE PATIENT AND SHE GETS INSIDE.
--- NOTE | 2020-11-30 00:09 | NUR ---
LICENSING ANALYST: PT. GOT INTO CAB AT THIS TIME. THIS RN ENDORSED TO SUPERINTENDENT CEMETERY THAT DEPUTY MILLER WOULD LIKE A PHONE CALL SO HE CAN HELP ENSURE PT. ENTERS RETIREMENT SAFELY. SUPERINTENDENT CEMETERY IS CALLING NOW TO LET KNOW HE IS ON HIS WAY WITH THE PATIENT.
--- NOTE | 2020-11-30 01:24 | NUR ---
DEPUTY MILLER CALLED THIS RN TO RELAY THAT THE PT MADE IT INSIDE THE ASSISTED SAFELY.
== END 2020-11-29 23:31 | disposition home or self-care (01) ==
LOC: ED 18:00
DX: S42.495A Other nondisplaced fracture of lower end of left humerus, initial encounter for closed fracture (principal); I10 Essential (primary) hypertension; X58.XXXA Exposure to other specified factors, initial encounter; Y93.89 Activity, other specified; Y92.89 Other specified places as the place of occurrence of the external cause; Y99.8 Other external cause status
CPT/HCPCS: 36415; 71045; 80048; 81003; 82040; 99285

== ENCOUNTER 2020-12-01 18:12 | Emergency (ER) | payer MEDICARE ==
[~2020-12-01] VITALS: Ht 147.3 cm; Wt 61.3 kg
--- NOTE | 2020-12-01 18:28 | NUR ---
PATIENT BIB [facility] WITH CHIEF C/O RLQ PAIN AND GROIN PAIN THAT STARTED AROUND 1100 THIS MORNING. PER EMS PATIENT HAS BEEN UNABLE TO URINATE MUCH TODAY. EMS REPORTS PATIENT FELT FINE YESTERDAY, HOWEVER, TODAY SHE FEELS THOUGH SHE HAS TO PEE ALL THE TIME BUT NOTHING COMES OUT. PATIENT DESCRIBES PAIN PULLING AND CRAMPING. PATIENT HAD A UTI ABOUT 6 WEEKS AGO, HOWEVER, QUIT TAKING HER ABX. VITALS STABLE EN ROUTE PER EMS. PATIENT AMBULATED TO BATHROOM WITH ASSISTANCE OF THIS RN, PATIENT ABLE TO LEAVE SOME URINE FOR URINE SAMPLE, PATIENT WALKED BACK TO [facility] TO MONITOR, CALL LIGHT WITHIN REACH.
--- NOTE | 2020-12-01 18:31 | NUR ---
ER PROVIDER AT BEDSIDE FOR EVALUATION.
[2020-12-01] MEDS ORDERED: ACETAMINOPHEN 325 MG TABLET ONE (18:40)
--- NOTE | 2020-12-01 18:46 | NUR ---
pt a&ox4. states she peed in her briefs and needs to change. meds given, and report received.
--- NOTE | 2020-12-01 18:46 | NUR ---
BEDSIDE REPORT GIVEN TO KE MOSQUERA FOR TRANSFER OF PATIENT CARE.
--- NOTE | 2020-12-01 18:46 | NUR ---
URINE SAMPLE COLLECTED AND WALKED TO LAB.
[2020-12-01 18:53] LABS: BASOPHILS % (AUTO) 1 % (0-1); EOSINOPHILS % (AUTO) 0 % (1-7); LYMPHOCYTES % (AUTO) 11 % (22-44); MEAN CORPUSCULAR HEMOGLOBIN 28.7 pg (27.0-34.8); MEAN CORPUSCULAR HGB CONC 33.2 g/dL (32.4-35.8); MONOCYTES % (AUTO) 6 % (2-9); NEUTROPHILS % (AUTO) 82 % (42-75); PLATELET COUNT 384 x10^3/uL (130-400); RED CELL DISTRIBUTION WIDTH 14.2 % (9.6-15.2)
[2020-12-01] MEDS ORDERED: ACETAMINOPHEN 325 MG TABLET PO ONE (19:00)
[2020-12-01 19:06] LABS: CHLORIDE 107 mmol/L (98-107)
[2020-12-01 19:10] LABS: ALBUMIN 3.3 g/dL (3.4-5.0); ANION GAP 7 mmol/L (5-15); CALCIUM 8.7 mg/dL (8.5-10.1); CREATININE 0.69 mg/dL (0.55-1.02)
[2020-12-01 19:31] LABS: MICROSCOPIC INDICATED
[2020-12-01 19:47] LABS: MD SCAN
--- NOTE | 2020-12-01 19:51 | NUR ---
pt gets up to the bathroom frequently with little to no output of urine. c/o pain to both sides of lower abdomen. MD order received to place a villegas. protocol followed and paperwork filled out. pt requested a female to insert villegas and Isabell RN to room to place villegas without incident. pt tolerated well, and urine output at 400ml at this time.
[2020-12-01] MEDS ORDERED: CEFTRIAXONE 1,000 MG IM ONE (20:00)
[2020-12-01 20:19] VITALS: BP 140/50
[2020-12-01] MEDS ORDERED: CEFTRIAXONE 1,000 MG ONE (20:21)
[2020-12-01] MEDS ORDERED: LIDOCAINE-MPF 1%, 5ML ONE (20:23)
--- NOTE | 2020-12-01 20:57 | NUR ---
meds given to pt and she tolerated well. 600ml of urine total has come out of villegas. waiting on dc instructions to get pt going.
== END 2020-12-01 22:04 | disposition home or self-care (01) ==
LOC: ED 18:42
DX: N30.00 Acute cystitis without hematuria (principal); R30.0 Dysuria; R33.9 Retention of urine, unspecified; I10 Essential (primary) hypertension; R11.0 Nausea; R10.9 Unspecified abdominal pain
CPT/HCPCS: 36415; 51702; 80048; 81001; 82040; 85025; 87086; 96372; 99284; J0696

== ENCOUNTER 2021-01-10 14:30 | Emergency (ER) | payer MEDICARE, MEDICAID ==
[~2021-01-10] VITALS: Ht 177.8 cm; Wt 58.0 kg
[~2021-01-10 14:30] MED LIST changes: +DIAZ2TAB3 PO; +LOSA25TA25 PO
[2021-01-10] MEDS ORDERED: ONDANSETRON ODT 4 MG PO ONE (15:00)
[2021-01-10] MEDS ORDERED: ONDANSETRON ODT 4 MG ONE (15:12)
[2021-01-10 15:17] LABS: BASOPHILS % (AUTO) 0 % (0-1); EOSINOPHILS % (AUTO) 0 % (1-7); LYMPHOCYTES % (AUTO) 5 % (22-44); MEAN CORPUSCULAR HEMOGLOBIN 28.5 pg (27.0-34.8); MEAN CORPUSCULAR HGB CONC 33.4 g/dL (32.4-35.8); MEAN PLATELET VOLUME 7.9 fL (7.4-10.4); MONOCYTES % (AUTO) 2 % (2-9); NEUTROPHILS % (AUTO) 93 % (42-75); PLATELET COUNT 418 x10^3/uL (130-400); RED BLOOD COUNT 4.34 x10^6/uL (3.82-5.3); RED CELL DISTRIBUTION WIDTH 13.7 % (9.6-15.2)
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
[2021-01-10 15:21] LABS: ALANINE AMINOTRANSFERASE 25 U/L (12-78); ALBUMIN 3.6 g/dL (3.4-5.0); ANION GAP 9 mmol/L (5-15); CHLORIDE 100 mmol/L (98-107)
[2021-01-10 15:23] LABS: ALKALINE PHOSPHATASE 190 U/L (45-117); BILIRUBIN,TOTAL 0.5 mg/dL (0.2-1.0); TOTAL PROTEIN 8.1 g/dL (6.4-8.2)
[2021-01-10 15:42] LABS: MD SCAN
[2021-01-10 16:01] VITALS: BP 109/66
== END 2021-01-10 16:54 | disposition home or self-care (01) ==
LOC: ED 16:40
DX: R11.2 Nausea with vomiting, unspecified (principal); K59.00 Constipation, unspecified; R10.84 Generalized abdominal pain; I10 Essential (primary) hypertension; R00.0 Tachycardia, unspecified
CPT/HCPCS: 36415; 74021; 80053; 83690; 85025; 99284

== ENCOUNTER 2021-01-11 12:30 | Emergency (ER) | payer MEDICARE, MEDICAID ==
[~2021-01-11] VITALS: Ht 147.3 cm; Wt 58.0 kg
[2021-01-11] MEDS ORDERED: MAALOX/HYOSCYAMINE/LIDOCAINE 45 ML BTL PO ONE (13:30)
[2021-01-11] MEDS ORDERED: MAALOX/HYOSCYAMINE/LIDOCAINE 45 ML BTL ONE (13:37)
--- NOTE | 2021-01-11 13:40 | NUR ---
MEDS ADMIN PER JAN.
[2021-01-11 13:49] LABS: BASOPHILS % (AUTO) 0 % (0-1); EOSINOPHILS % (AUTO) 0 % (1-7); LYMPHOCYTES % (AUTO) 9 % (22-44); MD NO; MEAN CORPUSCULAR HGB CONC 34.3 g/dL (32.4-35.8); MONOCYTES % (AUTO) 8 % (2-9); NEUTROPHILS % (AUTO) 82 % (42-75); PLATELET COUNT 430 x10^3/uL (130-400); RED BLOOD COUNT 4.71 x10^6/uL (3.82-5.3); RED CELL DISTRIBUTION WIDTH 13.9 % (9.6-15.2)
[2021-01-11 13:52] LABS: ANION GAP 9 mmol/L (5-15); CALCIUM 9.9 mg/dL (8.5-10.1); CHLORIDE 94 mmol/L (98-107)
[2021-01-11 13:55] LABS: ALANINE AMINOTRANSFERASE 25 U/L (12-78); ALKALINE PHOSPHATASE 173 U/L (45-117); BILIRUBIN,TOTAL 0.7 mg/dL (0.2-1.0); CREATININE 0.92 mg/dL (0.55-1.02); TOTAL PROTEIN 8.8 g/dL (6.4-8.2)
--- NOTE | 2021-01-11 14:13 | NUR ---
ALL RESULTS ARE BACK AT THIS TIME. CHART UP FOR RECHECK.
--- NOTE | 2021-01-11 14:27 | NUR ---
MED REQUESTED FROM PHARMACY.
[2021-01-11] MEDS ORDERED: SODIUM CHLORIDE FLUSH 10ML SYR IVF ONE (14:30)
[2021-01-11] MEDS ORDERED: POTASSIUM CHLORIDE 20 MEQ PACKET PO ONE (14:30)
[2021-01-11] MEDS ORDERED: SODIUM CHLORIDE 0.9% 1,000ML IVBOLUS ONE (14:30)
--- NOTE | 2021-01-11 14:41 | NUR ---
PT AT CT
[2021-01-11] MEDS ORDERED: POTASSIUM CHLORIDE 20 MEQ PACKET ONE (14:48)
[2021-01-11] MEDS ORDERED: OMNIPAQUE 350 MG/ML, 100ML BOTTLE ONE (14:59)
--- NOTE | 2021-01-11 15:00 | NUR ---
PT BACK FROM CT. REGULATORY AFFAIRS COORDINATOR PER JAN.
--- NOTE | 2021-01-11 15:09 | NUR ---
ALL RESULTS ARE BACK AT THIS TIME. CHART UP FOR RECHECK.
[2021-01-11 15:21] VITALS: BP 188/87
== END 2021-01-11 16:16 | disposition home or self-care (01) ==
LOC: ED 14:30
DX: K29.00 Acute gastritis without bleeding (principal); R10.13 Epigastric pain; R11.10 Vomiting, unspecified; R00.0 Tachycardia, unspecified; R06.02 Shortness of breath; R07.89 Other chest pain; I10 Essential (primary) hypertension; Z87.891 Personal history of nicotine dependence
CPT/HCPCS: 36415; 74022; 74177; 80053; 83690; 85025; 93005; 96360; 96361; 99285; J7030; Q9967

== ENCOUNTER 2021-02-20 10:45 | Emergency (ER) | payer MEDICARE, MEDICAID ==
[~2021-02-20] VITALS: Ht 147.3 cm; Wt 60.0 kg
[~2021-02-20 10:45] MED LIST changes: +ACID1TAB7 PO; +FERR-51 PO; +METH5TAB6 PO
[2021-02-20 10:51] VITALS: BP 144/84
--- NOTE | 2021-02-20 10:56 | NUR ---
pt resting comfortably on an e.r. gurney awaiting an md to assess her. warm blankets provided. i will monitor and treat as ordered, as well as prn while awaiting further plan of care.
== END 2021-02-20 11:47 | disposition home or self-care (01) ==
LOC: ED 10:51
DX: R51.9 Headache, unspecified (principal); R21 Rash and other nonspecific skin eruption; I10 Essential (primary) hypertension; Z88.8 Allergy status to other drugs, medicaments and biological substances
CPT/HCPCS: 99283

== ENCOUNTER 2021-03-04 10:41 | Emergency (ER) | payer MEDICARE, MEDICAID ==
[~2021-03-04] VITALS: Ht 147.3 cm; Wt 57.0 kg
--- NOTE | 2021-03-04 11:00 | NUR ---
Pt ambulatory to room, BIB [facility]. C/o symptoms. Painful urination with "clumps in urine" for a few days leading up to urinary retention this am. Hx of prolapsed bladder. Pt is a poor historian, states she's had a catheter previously but has not had an indwelling cath. Connected to BP and O2 cuff. Call light in reach. LIZZY.
[2021-03-04] MEDS ORDERED: PHENAZOPYRIDINE 200 MG TABLET ONE (11:22)
[2021-03-04] MEDS ORDERED: PHENAZOPYRIDINE 200 MG TABLET PO ONE (11:30)
--- NOTE | 2021-03-04 11:45 | NUR ---
200ml's drained out of bladder at time of straight cath.
[2021-03-04 11:55] LABS: MICROSCOPIC INDICATED
[2021-03-04] MEDS ORDERED: SODIUM CHLORIDE FLUSH 10ML SYR IVF ONE (13:00)
[2021-03-04] MEDS ORDERED: CEFTRIAXONE 1,000 MG in DEXTROSE 5% 50 ML IVPB ONE (13:00)
[2021-03-04] MEDS ORDERED: SODIUM CHLORIDE 0.9% 1,000ML IVBOLUS ONE (13:00)
--- NOTE | 2021-03-04 13:12 | NUR ---
TASK RN ASSISTING PRIMARY. IV PLACED, BC X 1 DRAWN WITH START. SUPPLY PERSON GREGORY 2ND BC. ROCEPHIN AND IV NS BOLUS INFUSING PER ERP ORDER. VSS/UPDATED IN COMPUTER. CALL LIGHT WITHIN REACH.
[2021-03-04 13:28] LABS: BASOPHILS % (AUTO) 1 % (0-1); EOSINOPHILS % (AUTO) 1 % (1-7); LYMPHOCYTES % (AUTO) 16 % (22-44); MEAN CORPUSCULAR HEMOGLOBIN 28.8 pg (27.0-34.8); MEAN CORPUSCULAR HGB CONC 33.3 g/dL (32.4-35.8); MEAN PLATELET VOLUME 8.3 fL (7.4-10.4); MONOCYTES % (AUTO) 7 % (2-9); NEUTROPHILS % (AUTO) 75 % (42-75); PLATELET COUNT 391 x10^3/uL (130-400); RED BLOOD COUNT 4.35 x10^6/uL (3.82-5.3); RED CELL DISTRIBUTION WIDTH 13.8 % (9.6-15.2)
[2021-03-04 13:31] LABS: MD NO
--- NOTE | 2021-03-04 13:32 | NUR ---
This RN bladder scanned pt, 96ml's in bladder. Pt now denies urinary retention, states "oh yeah, I'm peeing. Too much!"
[2021-03-04 13:37] LABS: ALBUMIN 3.5 g/dL (3.4-5.0); ANION GAP 4 mmol/L (5-15); CALCIUM 9.4 mg/dL (8.5-10.1); CHLORIDE 109 mmol/L (98-107); CREATININE 0.62 mg/dL (0.55-1.02)
[2021-03-04] MEDS ORDERED: NAPROXEN 250 MG TABLET ONE (14:47)
[2021-03-04] MEDS ORDERED: NAPROXEN 500 MG TABLET ONE (14:48)
[2021-03-04 14:58] VITALS: BP 132/78
== END 2021-03-04 15:01 | disposition home or self-care (01) ==
LOC: ED 11:07
DX: N30.00 Acute cystitis without hematuria (principal); M79.10 Myalgia, unspecified site; I10 Essential (primary) hypertension
CPT/HCPCS: 36415; 80048; 81001; 82040; 83605; 85025; 87040; 87086; 87147; 96365; 99285; J0696; J7030

== ENCOUNTER 2021-05-25 20:50 | Emergency (ER) | payer MEDICARE, MEDICAID ==
[~2021-05-25] VITALS: Ht 147.3 cm; Wt 61.4 kg
--- NOTE | 2021-05-25 20:52 | NUR ---
PT BROUGHT IN BIBA FROM [facility], PTS CHEIF COMPLAINT TODAY IS HAVING A GROUND LEVEL FALL, PT STATES SHE TRIPPED OVER SOME BRICKS, PT COMPLAINING OF NECK PAIN, SHOULDER PAIN AND KNEE PAIN ALL BILATERAL, PT NAD AT THIS TIME
--- NOTE | 2021-05-25 21:29 | NUR ---
THIS RN ASSISTED PT TO USE BEDSIDE COMMODE, PT ABLE TO MOVE ALL EXTREMETIES WELL AND DOES NOT REQUIRE ASSISTANCE TO MOVE AROUND IN BED OR TO GET OUT OF BED, NAD AT THIS TIME
--- NOTE | 2021-05-25 22:23 | NUR ---
PT LAYING IN BED, A/OX3, ALL NEEDS IN REACH, CALL LIGHT IN REACH, NAD AT THIS TIME
[2021-05-25 22:42] LABS: MICROSCOPIC INDICATED
[2021-05-25 23:03] LABS: BASOPHILS % (AUTO) 1 % (0-1); EOSINOPHILS % (AUTO) 2 % (1-7); LYMPHOCYTES % (AUTO) 28 % (22-44); MEAN CORPUSCULAR HEMOGLOBIN 29.5 pg (27.0-34.8); MEAN CORPUSCULAR HGB CONC 34.2 g/dL (32.4-35.8); MEAN PLATELET VOLUME 7.9 fL (7.4-10.4); MONOCYTES % (AUTO) 8 % (2-9); NEUTROPHILS % (AUTO) 62 % (42-75); PLATELET COUNT 430 x10^3/uL (130-400); RED BLOOD COUNT 4.13 x10^6/uL (3.82-5.3); RED CELL DISTRIBUTION WIDTH 14.6 % (9.6-15.2)
[2021-05-25 23:07] LABS: ALBUMIN 3.3 g/dL (3.4-5.0); ANION GAP 8 mmol/L (5-15); CALCIUM 8.7 mg/dL (8.5-10.1); CHLORIDE 105 mmol/L (98-107); CREATININE 1.06 mg/dL (0.55-1.02)
--- NOTE | 2021-05-25 23:30 | NUR ---
PT LAYING IN BED, A/OX3, ALL NEEDS IN REACH, CALL LIGHT IN REACH, NAD AT THIS TIME, VSS
[2021-05-25] MEDS ORDERED: CEFTRIAXONE 1,000 MG ONE (23:48)
[2021-05-26] MEDS ORDERED: CEFTRIAXONE 1,000 MG IM ONE
[2021-05-26 00:11] VITALS: BP 137/69
== END 2021-05-26 00:13 | disposition home or self-care (01) ==
LOC: ED 22:57
DX: S39.012A Strain of muscle, fascia and tendon of lower back, initial encounter (principal); S16.1XXA Strain of muscle, fascia and tendon at neck level, initial encounter; M43.16 Spondylolisthesis, lumbar region; M51.36 Other intervertebral disc degeneration, lumbar region; N30.00 Acute cystitis without hematuria; I10 Essential (primary) hypertension; W01.0XXA Fall on same level from slipping, tripping and stumbling without subsequent striking against object, initial encounter; Y93.89 Activity, other specified; Y92.009 Unspecified place in unspecified non-institutional (private) residence as the place of occurrence of the external cause; Y99.8 Other external cause status
CPT/HCPCS: 36415; 72110; 72125; 80048; 81001; 82040; 85025; 87077; 87086; 87186; 96372; 99285; J0696

== ENCOUNTER 2021-07-04 01:55 | Emergency (ER) | payer MEDICARE, MEDICAID ==
[~2021-07-04] VITALS: Ht 147.3 cm; Wt 60.0 kg
--- NOTE | 2021-07-04 01:56 | NUR ---
INITIAL PT CONTACT. PT PRESENTS TO ED C/O PAIN TO THE RIGHT GROIN AND OTHER PRIOR INSTANCES OF "PASSING OUT AND THINGS, MY DOCTOR IS WORKING ON STOPPING THAT THOUGH." PT SITTING UPRIGHT ON GURNEY. CHITRA BALL. CALL LIGHT REMAINS IN REACH.
[2021-07-04 03:17] LABS: BASOPHILS % (AUTO) 0 % (0-1); EOSINOPHILS % (AUTO) 0 % (1-7); LYMPHOCYTES % (AUTO) 4 % (22-44); MEAN CORPUSCULAR HEMOGLOBIN 28.4 pg (27.0-34.8); MEAN CORPUSCULAR HGB CONC 33.3 g/dL (32.4-35.8); MEAN PLATELET VOLUME 7.7 fL (7.4-10.4); MONOCYTES % (AUTO) 4 % (2-9); NEUTROPHILS % (AUTO) 91 % (42-75); PLATELET COUNT 391 x10^3/uL (130-400); RED BLOOD COUNT 4.51 x10^6/uL (3.82-5.3); RED CELL DISTRIBUTION WIDTH 14.2 % (9.6-15.2)
[2021-07-04 03:22] LABS: ALANINE AMINOTRANSFERASE 27 U/L (12-78); ALBUMIN 3.3 g/dL (3.4-5.0); ANION GAP 5 mmol/L (5-15); CALCIUM 8.6 mg/dL (8.5-10.1); CHLORIDE 103 mmol/L (98-107)
[2021-07-04 03:25] LABS: ALKALINE PHOSPHATASE 164 U/L (45-117); BILIRUBIN,TOTAL 0.3 mg/dL (0.2-1.0); CREATININE 0.81 mg/dL (0.55-1.02); TOTAL PROTEIN 7.9 g/dL (6.4-8.2)
--- NOTE | 2021-07-04 04:00 | NUR ---
STRAIGHT CATH PERFORMED PER ERP ORDER. PT TOLERATED WELL. NO ADDITIONAL NEEDS.
[2021-07-04 04:12] LABS: MICROSCOPIC NOT IND
--- NOTE | 2021-07-04 05:00 | NUR ---
Patient given discharge instructions and they have confirmed that they understand the instructions. Patient ambulatory with steady gait. NAD, all questions answered appropriately, denies additional needs at this time. No personal belongings left in room after discharge.
[2021-07-04 05:01] VITALS: BP 117/82
== END 2021-07-04 05:02 | disposition home or self-care (01) ==
LOC: ED 02:13
DX: R10.31 Right lower quadrant pain (principal); S76.011A Strain of muscle, fascia and tendon of right hip, initial encounter; D72.828 Other elevated white blood cell count; R55 Syncope and collapse; I10 Essential (primary) hypertension; X58.XXXA Exposure to other specified factors, initial encounter; Y93.89 Activity, other specified; Y92.89 Other specified places as the place of occurrence of the external cause; Y99.8 Other external cause status
CPT/HCPCS: 36415; 70450; 80053; 81003; 85025; 93005; 99285

== ENCOUNTER 2021-07-26 22:29 | Emergency (ER) | payer MEDICARE, MEDICAID ==
[~2021-07-26] VITALS: Ht 147.3 cm; Wt 61.5 kg
--- NOTE | 2021-07-26 22:38 | NUR ---
ASSUMED CARE OF PATIENT. PATIENT REPORTS RIGHT LOWER ABD PAIN WITH PAINFUL URINATION. VS STABLE. CALL LIGHT IN PLACE. WILL CONTINUE TO MONITOR.
--- NOTE | 2021-07-26 23:28 | NUR ---
DR LICEA IN ROOM
[2021-07-26 23:45] LABS: MICROSCOPIC INDICATED
[2021-07-27] MEDS ORDERED: ZOLOFT (00:07)
[2021-07-27] MEDS ORDERED: DIAZEPAM (00:08)
--- NOTE | 2021-07-27 00:09 | NUR ---
PT RESTING IN ROOM. VS STABLE. CALL LIGHT IN PLACE. WILL CONTINUE TO MONITOR.
[2021-07-27 00:41] LABS: BASOPHILS % (AUTO) 0 % (0-1); EOSINOPHILS % (AUTO) 2 % (1-7); LYMPHOCYTES % (AUTO) 28 % (22-44); MEAN CORPUSCULAR HEMOGLOBIN 29.2 pg (27.0-34.8); MEAN CORPUSCULAR HGB CONC 33.7 g/dL (32.4-35.8); MEAN PLATELET VOLUME 8.2 fL (7.4-10.4); MONOCYTES % (AUTO) 9 % (2-9); NEUTROPHILS % (AUTO) 60 % (42-75); PLATELET COUNT 390 x10^3/uL (130-400); RED CELL DISTRIBUTION WIDTH 14.2 % (9.6-15.2)
[2021-07-27 00:49] LABS: ALANINE AMINOTRANSFERASE 24 U/L (12-78); ALBUMIN 2.9 g/dL (3.4-5.0); ANION GAP 7 mmol/L (5-15); CALCIUM 8.4 mg/dL (8.5-10.1); CHLORIDE 106 mmol/L (98-107); CREATININE 0.76 mg/dL (0.55-1.02)
[2021-07-27 00:51] LABS: ALKALINE PHOSPHATASE 147 U/L (45-117); BILIRUBIN,TOTAL 0.3 mg/dL (0.2-1.0); TOTAL PROTEIN 7.2 g/dL (6.4-8.2)
--- NOTE | 2021-07-27 01:05 | NUR ---
PT IN CT
[2021-07-27] MEDS ORDERED: OMNIPAQUE 350 MG/ML, 100ML BOTTLE ONE (01:10)
--- NOTE | 2021-07-27 01:31 | NUR ---
PT AMBULATED TO BATHROOM. VS STABLE. NO ACUTE DISTRESS NOTED. WILL CONTINUE TO MONITOR.
[2021-07-27 01:39] VITALS: BP 135/66
--- NOTE | 2021-07-27 01:47 | NUR ---
report from Magui DEMPSEY
--- NOTE | 2021-07-27 01:48 | NUR ---
REPORT GIVEN TO KE PURVIS
== END 2021-07-27 02:38 | disposition home or self-care (01) ==
LOC: ED 23:00
DX: K57.32 Diverticulitis of large intestine without perforation or abscess without bleeding (principal); I10 Essential (primary) hypertension
CPT/HCPCS: 36415; 74177; 80053; 81001; 83690; 85025; 87086; 99285; Q9967